=== PATIENT | male | born 1990 | race Hispanic/Latino ===

== ENCOUNTER 2023-09-23 22:39 | Emergency (ER) | payer OTHER ==
[~2023-09-23] VITALS: Ht 188 cm; Wt 89.0 kg
[2023-09-23 23:10] VITALS: BP 133/87
== END 2023-09-23 23:25 | disposition home or self-care (01) | DRG 923 ==
LOC: ED 22:39
DX: Z04.1 Encounter for examination and observation following transport accident (principal)